=== PATIENT | female | born 1955 | race Caucasian/White ===

== ENCOUNTER 2021-11-20 08:10 | Outpatient (CLI) | payer MEDICARE, OTHER, SELFPAY ==
[2021-11-20 08:52] LABS: Anion Gap 5 mmol/L (8-16); Blood Urea Nitrogen 16 mg/dL (7-17); Calcium 8.9 mg/dL (8.4-10.2); Carbon Dioxide 32 mmol/L (22-30); Chloride 101 mmol/L (98-107); Estimated Glomerular Filt Rate > 60; Glucose 106 mg/dL (65-110); Potassium 4.2 mmol/L (3.4-5.0); Sodium 138 mmol/L (137-145)
== END 2021-11-20 08:11 | disposition home or self-care (01) ==
LOC: ANHSURGERY 08:19
PROVIDERS: Anesthesiology; Visit Provider Urology
DX: E11.9 Type 2 diabetes mellitus without complications (principal); N39.3 Stress incontinence (female) (male); Z01.818 Encounter for other preprocedural examination
CPT/HCPCS: 36415; 80048; 87086; 87088

== ENCOUNTER 2021-11-27 04:04 | Day surgery (SDC) | payer MEDICARE, OTHER, SELFPAY ==
[2021-11-16 15:37] VITALS: BMI 43.0
--- NOTE | 2021-11-16 15:45 | PC.NURSE ---
Report to the Outpatient Waiting Room, entrance under the green pavilion located off [facility], at time ___0615____ on date ___11/27/21____. OR Time: 08___. - You and your visitor will be asked a series of questions to screen for COVID 19 for your protection. - Only one visitor is allowed at this time. - The patient visitor is requested to leave or wait in car when not with patient. - A mask is required within the hospital. Patients may have clear liquids (water, carbonated beverages, clear teas, apple juice) until 3 hours prior to surgery (0515 AM) with a maximum of 20 ounces. - No food from midnight until time of surgery Take the following medications with a SIP of water the morning of surgery: _ESCITALOPRAM, PRAMIPEXOLE__ Medications to discontinue per DR. PASTOR - ASPIRIN 7 DAYS PRIOR TO SURGERY, Date to take last dose 11/19/21_ Medications to discontinue per ANESTHESIA - VITAMINS/SUPPLEMENTS 3 DAYS PRIOR TO SURGERY, Date to take last dose 11/23/21_ Please no make-up, nail mohawk, hairspray, perfume, deodorant, or body powder the day of surgery. No jewelry (including any body piercings) or valuables the day of surgery, leave them at home. Please take a shower or bath the night before, or the morning of, surgery with an antibacterial soap. Wear comfortable, loose fitting clothing. - Jewelry must be removed prior to entering the operating room. Rings and piercings that are not removed may be cut off. - The hospital will not accept responsibility for valuables. - Please leave all valuables, including medications, at home the day of surgery. If you are going home after surgery, a licensed refrigerated company driver must drive you home. - NO public transportation without another adult. - We recommend that an adult stay with you for 24 hours following discharge. - We also recommend that you do not drive, make important decision, drink alcoholic beverages, or take any drugs that were not prescribed by your health care provider for at least 24 hours after your discharge time. Follow any additional instructions given to you from your surgeon. If you or anyone in your household have experienced Covid symptoms in the past week, please notify your surgeon or the nurse liaison at the phone number below for possible testing. Telephone instructions given to ___PT and asked if any additional questions and then verbalized understanding. Patient advised to call surgeon office or pre surgery nurse liaison [phone] if any additional questions.
--- NOTE | 2021-11-25 13:25 | PM.IMHP ---
H&P: HPI History of Present Illness Date/Time: 11/25/21 13:25 Chief Complaint: stress incontinence Narrative: this is a patient with mixed incontinence. She has stress incontinence predominant Review of Systems Review of Systems: All systems reviewed & are unremarkable except as noted in HPI and below PMFSH Social History Social History Smoking status: Never smoker Second hand tobacco smoke exposure: No Alcohol intake: never Substance use: never Substance use type: does not use Spiritual care concerns: No Meds Home Medications and Allergies Home Medications Medication Instructions Recorded Confirmed Type aspirin 81 mg tablet,delayed 81 mg PO QAM 11/16/21 11/16/21 History release atorvastatin 10 mg tablet 1 tablet QAM 11/16/21 11/16/21 History calcium 1 tab-cap QA 11/16/21 11/16/21 History escitalopram oxalate 10 mg tablet 1 tablet QA 11/16/21 11/16/21 History hydroxychloroquine 200 mg tablet 1 tablet PO QAM 11/16/21 11/16/21 History lisinopril 20 mg tablet 1 tablet QA 11/16/21 11/16/21 History metformin 500 mg tablet,extended 1 tablet PO QAM 11/16/21 11/16/21 History release 24 hr mirabegron 25 mg tablet,extended 1 tablet PO QAM 11/16/21 11/16/21 History release 24 hr (Myrbetriq) lfdyasii-afx-fkily ac 400 1 tablet PO QAM 11/16/21 11/16/21 History mcg-calcium carb 500 mg-vit K1 20 mcg tablet pramipexole 1.5 mg tablet 1 tablet BID 11/16/21 11/16/21 History Allergies Allergy/AdvReac Type Severity Reaction Status Date / Time amoxicillin AdvReac Difficulty Verified 11/16/21 15:28 Breathing Exam Narrative: NAD Resp: Other: normal breathing : Other: fixed urethra Neuro: Other: A+O x3 Assessment and Plan Assessment and plan (1) Intrinsic sphincter deficiency (ISD): Code(s): N36.42 - Intrinsic sphincter deficiency (ISD) Status: Acute Assessment and Plan: cytstooscopy, bulking agent. Understands will not help OAB
--- NOTE | 2021-11-26 09:40 | WPDANESEPPF ---
Anes - Initial Pre Proc Eval Procedure: Operation Date: 11/27/21 08:15 Proposed Procedures p Cystoscopy, Injection Bulkamid - Sammy Weinstein MD <Jorge Cannon, DO - Last Filed: 12/03/21 11:40> Date/Time: 11/26/21 09:40 <Jorge Cannon DO - Last Filed: 12/03/21 11:40> Surgeon: Sammy Weinstein MD <Jorge Cannon, DO - Last Filed: 12/03/21 11:40> Pre Op Diagnosis: ISD <Jorge Cannon DO - Last Filed: 12/03/21 11:40> Patient Data Age: 66 Gender: F Height: 1.57 m Weight: 106.81 kg <Jorge Cannon DO - Last Filed: 12/03/21 11:40> Allergies Allergy/AdvReac Type Severity Reaction Status Date / Time amoxicillin AdvReac Difficulty Verified 11/27/21 06:49 Breathing <Jorge Cannon, DO - Last Filed: 12/03/21 11:40> Home Medications Medication Instructions Recorded Confirmed Type aspirin 81 mg tablet,delayed 81 mg PO QAM 11/16/21 11/27/21 History release atorvastatin 10 mg tablet 1 tablet QAM 11/16/21 11/27/21 History calcium 1 tab-cap QA 11/16/21 11/27/21 History escitalopram oxalate 10 mg tablet 1 tablet QAM 11/16/21 11/27/21 History hydroxychloroquine 200 mg tablet 1 tablet PO QAM 11/16/21 11/27/21 History lisinopril 20 mg tablet 1 tablet QAM 11/16/21 11/27/21 History metformin 500 mg tablet,extended 1 tablet PO QAM 11/16/21 11/27/21 History release 24 hr mirabegron 25 mg tablet,extended 1 tablet PO QAM 11/16/21 11/27/21 History release 24 hr (Myrbetriq) xjlkwwbr-ads-ihzbs ac 400 1 tablet PO QAM 11/16/21 11/27/21 History mcg-calcium carb 500 mg-vit K1 20 mcg tablet pramipexole 1.5 mg tablet 1 tablet BID 11/16/21 11/27/21 History phenazopyridine 200 mg tablet 200 mg PO TID PRN pain 6 doses #30 11/27/21 Rx (Pyridium) tabs <Jorge Cannon DO - Last Filed: 12/03/21 11:40> Patient hx anesthesia problems: none <Jean Al MD - Last Filed: 11/27/21 06:57> Family hx anesthesia problems: none <Jean Al MD - Last Filed: 11/27/21 06:57> Results Review: All pre-operative results and documents have been reviewed as part of the pre-operative evaluation. <Jorge Cannon DO - Last Filed: 12/03/21 11:40> [facility] Past Medical History Medical History: Medical History (Updated 11/26/21 @ 09:41 by Jorge Cannon DO) Depression Diabetes type 2, controlled Hyperlipidemia Hypertension KERMIT (obstructive sleep apnea) <Jorge Cannon DO - Last Filed: 12/03/21 11:40> Surgical History Surgical History: Surgical History (Updated 11/26/21 @ 09:41 by Jorge Cannon DO) History of hysterectomy <Jorge Cannon DO - Last Filed: 12/03/21 11:40> Social History Social History: Social History Smoking status: Never smoker Second hand tobacco smoke exposure: No Alcohol intake: never Substance use: never Substance use type: does not use Living arrangements: with family Spiritual care concerns: No <Jorge Cannon DO - Last Filed: 12/03/21 11:40> Anes - Eval Final PreProcedure Day of Procedure 11/26/21 09:40 <Jorge Cannon DO - Last Filed: 12/03/21 11:40> Patient weight: morbidly obese <Jorge Cannon DO - Last Filed: 12/03/21 11:40> Heart: regular rate and rhythm <Jorge Cannon DO - Last Filed: 12/03/21 11:40> Lungs: clear to auscultation <Jorge Cannon DO - Last Filed: 12/03/21 11:40> Airway: Mallampati scale class II <Jorge Cannon DO - Last Filed: 12/03/21 11:40> Neurological: alert and oriented <Jorge Cannon DO - Last Filed: 12/03/21 11:40> Last oral intake: >/= 8 hours <Jorge Cannon DO - Last Filed: 12/03/21 11:40> ASA classification: III <Jorge Cannon DO - Last Filed: 12/03/21 11:40> Emergent: no <Jorge Cannon DO - Last Filed: 12/03/21
[2021-11-27 06:58] VITALS: BP 139/69; PULSE 62; RESP 18; TEMP 36.4; O2SAT 96; BMI 45.7
--- NOTE | 2021-11-27 07:16 | WPDHPUPDATE1 ---
History and Physical Update Update Date/Time: 11/27/21 07:16 History and Physical has been reviewed, including an updated exam of the patient. There are NO changes in the patient's condition. Risks, benefits, and alternatives have been discussed and questions answered. Patient agrees to proceed with procedure.
[2021-11-27] MEDS: LACTATED RINGERS 1,000 ML 30 ML IV CONT (07:20)
[2021-11-27 07:28] LABS: Glucose Point of Care 112 mg/dl (65-105)
[2021-11-27] MEDS: ceFAZolin 2 GM/D5W 50 ML 2 GM/50 ML BAG IVPB (08:07)
[2021-11-27] MEDS: LIDOCAINE HCL 2% GEL UROJET 10 ML PKG MUCOUS MEM (08:22)
--- NOTE | 2021-11-27 08:31 | P.OP_ITS ---
Procedure Note - Detailed Date of Procedure 11/27/21 Pre-op Diagnosis ISD Post-op Diagnosis Same Procedure Performed Cystoscopy with suburethral injection of implant material Surgeon Sammy Weinstein MD Paving Block Cutter None Anesthesia MAC Indications This is a woman with stress incontinence consistent with intrinsic sphincter deficiency. She has an overactive bladder component also it is on medications She understands risks of bleeding, infection, need for repeat procedures, urinary retention, she understands the reported success rate. She understands it will not help her overactive bladder symptoms. She agrees to proceed. Findings Open urethra consistent with intrinsic sphincter deficiency Description of Procedure She was correctly identified. Informed consent obtained. She is from the operating room. She was given MAC anesthesia. She was prepped and draped in a sterile fashion. Time-out performed. I drained her bladder. I applied a Uro jet. Brief cystoscopy revealed no abnormalities. Urethra was open consistent with intrinsic sphincter deficiency. I injected my bulking agent circumferentially. I chose a section of the urethra 2 cm from the bladder neck. I used 1-1/2 syringe of bulking material. There was excellent bulking effect. She was awakened and transferred to PACU in stable condition. Her bladder was left partially full. Implants Bulking agent Estimated Blood Loss 0 Drains No Pathology None sent Complications No immediate complications Condition Stable Disposition PACU
[2021-11-27 08:32] VITALS: BP 123/65; PULSE 66; RESP 16; O2SAT 94
[2021-11-27 08:37] LABS: Glucose Point of Care 115 mg/dl (65-105)
[2021-11-27 09:00] VITALS: BP 143/80; PULSE 71; RESP 16
[2021-11-27 09:20] VITALS: BP 141/69; PULSE 60; RESP 16
== END 2021-11-27 09:28 | disposition home or self-care (01) ==
PROVIDERS: Visit Provider Urology
PROC: 3E0K8GC Introduction of Other Therapeutic Substance into Genitourinary Tract, Via Natural or Artificial Opening Endoscopic (ICD-10-PCS; CPT 51715; principal; 2021-11-27 08:15)
DX: N36.42 Intrinsic sphincter deficiency (ISD) (principal); N39.3 Stress incontinence (female) (male); I10 Essential (primary) hypertension; E11.9 Type 2 diabetes mellitus without complications; E78.5 Hyperlipidemia, unspecified; G47.33 Obstructive sleep apnea (adult) (pediatric); F32.A Depression, unspecified; Z79.84 Long term (current) use of oral hypoglycemic drugs; Z79.82 Long term (current) use of aspirin; E66.01 Morbid (severe) obesity due to excess calories; Z68.42 Body mass index [BMI] 45.0-49.9, adult
CPT/HCPCS: 51715; 82948; A9270; J0690; J2704; J3010; J7120; L8606